=== PATIENT | female | born 1955 | race Caucasian/White ===

== ENCOUNTER 2017-05-26 12:43 | Emergency (ER) | payer MEDICARE ==
[~2017-05-26] VITALS: Ht 177.8 cm; Wt 57.3 kg
[2017-05-26] MEDS ORDERED: ARIP5TA PO (13:14)
[2017-05-26] MEDS ORDERED: ALPRAZolam 0.25 MG TAB PO ONE (13:15)
[2017-05-26] MEDS ORDERED: ONDANSETRON 4 MG ORAL DISINTEGRATING TAB (S0181) PO ONE (13:15)
[2017-05-26 13:49] LABS: BASO % 0.3 % (0.0-1.0); EOS # 0.1 K/mm3 (0.0-0.50); EOS % 0.8 % (0.0-3.0); LARGE UNSTAINED CELL # 0.1 K/mm3 (0.0-0.4); LARGE UNSTAINED CELL % 1.3 % (0.0-4.0); LYMPH # 1.6 K/mm3 (1.5-4.5); LYMPH % 19.1 % (24.0-44.0); MEAN CORPUSCULAR HEMOGLOBIN 29.4 pg (27.0-33.0); MEAN CORPUSCULAR VOLUME 86.5 fl (80.0-96.0); MONO # 0.4 K/mm3 (0.0-0.8); MONO % 4.5 % (0.0-5.0); NEUTROPHILS # 5.9 K/mm3 (1.8-7.7); PLATELET COUNT, AUTOMATED 346 k/mm3 (150-450); RED CELL DISTRIBUTION WIDTH 12.6 % (11.5-14.5)
[2017-05-26 14:00] LABS: ALBUMIN/GLOBULIN RATIO 0.93 (1.00-1.93); ALKALINE PHOSPHATASE 100 U/L (45-117); ALT/SGPT 37 U/L (12-78); ANION GAP 11 MEQ/L (8-16); AST/SGOT 23 U/L (15-37); BILIRUBIN,DIRECT 0.1 MG/DL (0.0-0.2); BILIRUBIN,TOTAL 0.6 MG/DL (0.2-1.0); BLOOD UREA NITROGEN 14 MG/DL (7-18); CALCIUM LEVEL 9.7 MG/DL (8.8-10.2); CARBON DIOXIDE LEVEL 24 MEQ/L (21-32); CHLORIDE LEVEL 104 MEQ/L (98-107); CREATININE FOR GFR 0.69 MG/DL (0.55-1.02); GLOMERULAR FILTRATION RATE > 60.0 (>45); GLUCOSE, FASTING 97 MG/DL (80-110); POTASSIUM SERUM 4.2 MEQ/L (3.5-5.1); SODIUM LEVEL 139 MEQ/L (136-145); TOTAL PROTEIN 8.3 GM/DL (6.4-8.2)
[2017-05-26] MEDS ORDERED: ZOFR4TAB3 PO (15:28)
[2017-05-26 15:44] VITALS: BP 119/71
== END 2017-05-26 15:46 | disposition home or self-care (01) ==
LOC: M ED 12:43
DX: R11.2 Nausea with vomiting, unspecified (principal); R10.9 Unspecified abdominal pain

== ENCOUNTER 2017-06-01 06:08 | Inpatient (IN) | payer MEDICARE, OTHER ==
[~2017-06-01] VITALS: Ht 175.3 cm; Wt 68.2 kg
[~2017-06-01 06:08] MED LIST: ARIP5TA PO; ZOFR4TAB3 PO
[2017-06-01] MEDS ORDERED: HYDR100C PO (06:58)
[2017-06-01 08:28] LABS: MEAN CORPUSCULAR HEMOGLOBIN 28.6 pg (27.0-33.0); MEAN CORPUSCULAR HGB CONC 32.2 g/dl (32.0-36.5); MEAN CORPUSCULAR VOLUME 88.6 fl (80.0-96.0); RED CELL DISTRIBUTION WIDTH 12.7 % (11.5-14.5); WHITE BLOOD COUNT 9.6 K/mm3 (4.0-10.0)
[2017-06-01 08:50] LABS: ALBUMIN 3.7 GM/DL (3.2-5.2); ALBUMIN/GLOBULIN RATIO 0.95 (1.00-1.93); ALKALINE PHOSPHATASE 90 U/L (45-117); ALT/SGPT 33 U/L (12-78); ANION GAP 8 MEQ/L (8-16); AST/SGOT 20 U/L (15-37); BILIRUBIN,DIRECT 0.1 MG/DL (0.0-0.2); BILIRUBIN,TOTAL 0.4 MG/DL (0.2-1.0); BLOOD UREA NITROGEN 12 MG/DL (7-18); CALCIUM LEVEL 9.3 MG/DL (8.8-10.2); CARBON DIOXIDE LEVEL 28 MEQ/L (21-32); CHLORIDE LEVEL 105 MEQ/L (98-107); CREATININE FOR GFR 0.76 MG/DL (0.55-1.02); GLOMERULAR FILTRATION RATE > 60.0 (>45); GLUCOSE, FASTING 103 MG/DL (80-110); POTASSIUM SERUM 4.3 MEQ/L (3.5-5.1); SODIUM LEVEL 141 MEQ/L (136-145); TOTAL PROTEIN 7.6 GM/DL (6.4-8.2)
[2017-06-01 09:39] LABS: METHADONE URINE NEGATIVE (NEGATIVE)
[2017-06-01] MEDS ORDERED: HYDR50CA2 PO (12:53)
[2017-06-01] MEDS ORDERED: VITA-121 PO (12:53)
[2017-06-01] MEDS ORDERED: ARIP1TAB PO (12:53)
[2017-06-01] MEDS ORDERED: ONDA4TAB6 PO (12:53)
[2017-06-01] MEDS ORDERED: MOM 30ML SUSPENSION UDC PO PRN (16:00)
[2017-06-01] MEDS ORDERED: traZODone 50 MG TAB PO PRN (16:00)
[2017-06-01] MEDS ORDERED: MAALOX 30 ML SUSP *UDC PO PRN (16:00)
[2017-06-01 16:25] VITALS: BP 113/65
[2017-06-01 18:16] VITALS: BP 134/79
[2017-06-01] MEDS: VITAMIN D 1,000 INTERNATIONAL UNITS TABLET PO SCH (18:18)
[2017-06-01] MEDS: ARIPiprazole 15 MG TAB (AbiLIFY) PO SCH (20:39)
[2017-06-01] MEDS: hydrOXYzine 50 MG TAB PO SCH (20:40)
[2017-06-02] MEDS ORDERED: OLANZapine ORAL DISINTEGRATING TAB 5MG PO ONE (01:45)
[2017-06-02 06:48] VITALS: BP 137/63
[2017-06-02] MEDS: VITAMIN D 1,000 INTERNATIONAL UNITS TABLET PO SCH (08:32)
[2017-06-02] MEDS ORDERED: OLANZapine ORAL DISINTEGRATING TAB 5MG PO PRN (11:05)
[2017-06-02] MEDS ORDERED: INFLUENZA QUADRIVALENT PF VACCINE 0.5ML SYRINGE (90686) IM ONE (13:00)
[2017-06-02] MEDS ORDERED: LORazepam 1 MG TAB PO STA (14:13)
[2017-06-02] MEDS ORDERED: diphenhydrAMINE 50 MG CAP PO STA (14:13)
[2017-06-02] MEDS ORDERED: HALOPERIDOL 5 MG TAB PO STA (14:13)
--- NOTE | 2017-06-02 17:23 | HPE ---
DATE OF ADMISSION: 06/01/2017 HISTORY OF PRESENT ILLNESS: This is a 61-year-old white woman who was admitted to the hospital in a very paranoid state, who was also acutely hallucinating. She has a history of schizophrenia and she currently attends [facility]. Apparently, they have been adjusting her medications lately. It seems like they started her on Abilify and they have quickly titrated up the dose to 15 mg a day. Despite this, the patient continues to be quite psychotic. She is paranoid that people are going into her house and going through her refrigerator because they want to poison her. She has been running and hiding because the voices tell her that they are going to hurt her and they are going to hurt her friends. The patient had gone to stay actually with a friend, but according to the friend, the patient stayed up all night and was also hiding in the house and this is where the friend decided to bring the patient to the emergency room. It seems that the patient's psychiatrist had also prescribed her some Klonopin but the patient was afraid that the Klonopin would kill her, and so she never started it. The patient is acutely psychotic today. When I went into the room, the patient was hiding in the bathroom. She told me that she needed to hide because the voices were saying that they were coming to kill her. She has been compliant with taking the Abilify 15 mg at bedtime which was being prescribed by her doctor. In addition, we have been giving her some Zyprexa Zydis 10 mg at least two doses already since admission last night and yet she remains very psychotic. As a result, the patient is not able to give me much history because her focus is that she needs to hide in the bathroom. At one point, later on, she started to yell and she is also not wanting to eat much food since admission. PAST PSYCHIATRIC HISTORY: Unable to obtain such history, but according to information obtained in the emergency room, the patient has never been hospitalized in our unit before. It seems that in early 2015, she was hospitalized in a psychiatric unit in another state when she was visiting her brother there. Unable to obtain much more past psychiatric history. FAMILY HISTORY: Unable to obtain information from this patient. SUBSTANCE ABUSE HISTORY: There does not appear to be any history of any substance abuse problems. ABUSE HISTORY: Unable to obtain information. PAST MEDICAL HISTORY: No acute medical problems that have been reported at this point. REVIEW OF SYSTEMS: VITAL SIGNS: Blood pressure 137/63, pulse 88, respiratory rate 18. APPEARANCE: The patient is dressed in hospital garments. She appears her stated age. MUSCULOSKELETAL SYSTEM: The patient's gait is normal. I did not elicit any involuntary movements. All other systems were reviewed and found to be negative. MENTAL STATUS EXAMINATION: The patient was alert and oriented times three. As I stated, mostly she was hiding in the bathroom. It was very difficult to get her to further cooperate with the mental status examination. She is experiencing auditory hallucinations and paranoid delusions. She is very fearful. She is not suicidal or homicidal. Her insight and judgment are poor. DIAGNOSIS: Schizophrenia. TREATMENT PLAN: At this point, the patient is acutely psychotic. We will monitor her for her psychotic symptoms. I am going to continue the Abilify 50 mg at bedtime. She is also on trazodone 50 mg at bedtime as needed for insomnia and she is on Atarax 50 mg. We have been giving her Zyprexa on an as-needed basis for her ongoing psychotic symptoms and we will titrate her medications as indicated. GUERA
[2017-06-02 18:16] VITALS: BP 119/60
[2017-06-02] MEDS: ARIPiprazole 15 MG TAB (AbiLIFY) PO SCH (20:12)
[2017-06-02] MEDS: hydrOXYzine 50 MG TAB PO SCH (20:12)
[2017-06-03 06:50] VITALS: BP 125/58
[2017-06-03] MEDS: VITAMIN D 1,000 INTERNATIONAL UNITS TABLET PO SCH (08:54)
[2017-06-03] MEDS: BETAMETHASONE VAL 0.1% CR 15 GM TOP SCH ×2 (08:55→20:08)
--- NOTE | 2017-06-03 12:44 | HPE ---
DATE OF ADMISSION: 06/01/2017 HISTORY OF PRESENT ILLNESS: Please refer to psychiatric history and evaluation for further details on this admission. This examination and history is intended for medical issues, which may need treatment, followup or consult on this 61-year-old female. ALLERGIES: 1. CODEINE. 2. MENTHOL. 3. MEPERIDINE. 4. OSELTAMIVIR. PRIMARY CARE PROVIDER: Dr. Escalona in [place]. She needs to get a local primary care provider. She currently does not have one. SOCIAL HISTORY: She is . She lives in an apartment. She is extremely paranoid. She is hearing voices and the voices have been telling her they were coming to kill her. Ethyl alcohol (EtOH) none. Smoking and recreational drug use, none. PAST MEDICAL HISTORY: 1. Vitamin D deficiency. 2. Schizophrenia. 3. Degenerative disc disease. She walks with a cane. PAST SURGICAL HISTORY: 1. Mass removed from left kidney, negative for cancer. 2. Bone biopsy left shoulder and left hip, negative for cancer. HOME MEDICATIONS: - Abilify 15 mg by mouth daily - vitamin D 1000 units daily - hydroxyzine pamoate 50 mg by mouth at bedtime as needed - Zofran 4 mg by mouth every four hours as needed for nausea and vomiting LABORATORY DATA: CBC was normal. CMP was normal. Toxicology screen was negative. FAMILY HISTORY: Noncontributory. REVIEW OF SYSTEMS: 10-system review was done. The patient had no complaints. States she has an eczematous patch on her left lower leg that she put cream on when it flares up. Other than that, she had no complaints. OBJECTIVE: A 61-year-old cooperative female in no acute distress. VITAL SIGNS: Blood pressure 119/60, pulse 90, respirations 16, temperature 97.6. GENERAL: The patient is alert and oriented times three, remains quite paranoid. HEENT: Pupils equal and react to light. Extraocular movement intact. Sclerae clear. Conjunctivae normal. No facial asymmetry. Pharynx, tongue, gums pink and moist. Tongue is midline. NECK: Supple without lymphadenopathy. No thyromegaly. No goiter. Carotids 2+ without bruits. CHEST: Clear to auscultation without wheeze or retraction. HEART: Regular. ABDOMEN: Benign. Bowel sounds are positive. GENITOURINARY/RECTAL: Not done. EXTREMITIES: Show arthritic changes. No cyanosis, clubbing or edema. Peripheral pulses equal and palpable bilaterally. SKIN: Warm and dry. IMPRESSION AND PLAN: Psychiatric plan per psychiatry. 1. History of vitamin D deficiency. Continue supplement. 2. Schizophrenia. 3. Degenerative disc disease, ambulates with a cane. 4. Left lower leg noted with a slightly dry eczema patch. No redness, swelling or drainage. We will do betamethasone cream twice a day for seven days. No other acute medical issues.
[2017-06-03] MEDS: OLANZapine ORAL DISINTEGRATING TAB 5MG PO PRN ×2 (15:49→20:08)
--- NOTE | 2017-06-03 17:43 | MHIPNPDOC ---
[facility] Progress Note Progress Note DATE OF SERVICE: 06/03/17 HISTORY: Patient was seen and evaluated. She was found sitting in the chair trying to read some papers. She reported that when she came in she was feeling very paranoid and also was hearing voices telling her that they're coming to kill her. She reports that during the weekend. She was hiding herself in various places including some other patient's room, she reports that she is feeling little better but continued to have close paranoid ideations and auditory hallucinations intermittently. She was able to hold and was stationed in reported that all psychotic symptoms started about 2 years ago for which she was having outpatient treatment, but soon she stopped her medications and had to be admitted to inpatient hospital about one and half years ago for about a week and since then she has been compliant with her medications recently. She had relapsed on her symptoms and her outpatient psychiatrist was trying to titrate some medications, but she was deteriorating fast. She reports that she usually lives alone and able to take care of herself including ADLs, going for grocery and taking care of finances without needing any help, but because of relapse. She had to start living with one of her friend, [employer] work there also , she continued to feel paranoid and was not sleeping at night, leading to her friend bringing her to ER for admission. She denies any recent memory problems and reports that without psychosis, She was able to take care of herself. She denies any suicidal or homicidal ideations, intentions or plans or previous attempts. She reports that to psychotic symptoms can happen anytime during today and during that time, she likes to be hiding somewhere being away from everyone else. Her sleep continued to be affected and reports that she did not sleep yesterday night because she continued to feel paranoid that the voices will kill her. She reports that there are multiple voices talking directly to her and all of them are outside her head just like hearing somebody talking to her, she reports the voices tell her their names, but she does not know any of them. She reports that because of the paranoia. Her appetite is also down and she avoids eating VITAL SIGNS: See below. CURRENT MEDICATIONS: See below. MENTAL STATUS EXAMINATION: 61yo female sitting in the chair, looks appropriate for the stated age, fair hygiene and grooming, decreased psychomotor activities, no abnormal movements, superficially cooperative with fair eye contact, speech is normal in rate, rhythm, amount, mood is 'scared, nervous', affect constricted and mood congruent , thought process is logical and goal directed, denies suicidal and homicidal ideations, reported auditory hallucinations, paranoid delusions elicited, aaox3 , fair immediate, short term and pen[facility]ent[facility] memory, fair insight, judgement and impulse control DIAGNOSES: 1. Psychosis, unspecified, rule out late onset schizophrenia. 2.. Rule out psychosis with dementia. 3. Rule out psychosis secondary to generalized medical condition. ASSESSMENT:. Patient seems to continue to be psychotic and paranoid, but not hiding and most of the symptoms of becoming intermittent. Her sleep and appetite are affected MANAGEMENT PLAN:. Continue to titrate medications. TIME SPENT: 25 minutes. Vital Signs Vital Signs Date Time Temp Pulse Resp B/P (MAP) Pulse Ox O2 Delivery O2 Flow Rate FiO2 06/03/17 06:50 98.6 94 18 125/58 (80) Room Air 06/01/17 16:25 95 Current Medications Current Medications Acetaminophen (Tylenol Tab) 650 mg Q6HP PRN PO HEADACHE or DISCOMFORT; Start at 16:00; Stop 07/01/17 at 15:59 Al Hydrox/Mg Hydrox/Simethicone (Mylanta) 30 ml Q4HP PRN PO HEARTBURN/ INDIGESTION; Start 06/01/17 at 16:00; Stop 07/01/17 at 15:59 Aripiprazole (AbiLIFY) 15 mg QHS PO Last administered on 06/02/17 20:12; Start 06/01/17 at 21:00; Stop 06/03/17 at 17:21; Status DC Aripiprazole (AbiLIFY) 20 mg QHS PO ; Start 06/03/17 at 21:00; Stop 07/03/17 at 20:59; Status UNV Betamethasone Valerate (Valisone) to excema patch left lower ... BID TOP Last administered on 06/03/17 08:55; Start 06/03/17 at 09:00; Stop 06/09/17 at 21:01 Diphenhydramine HCl (Benadryl) 50 mg STAT STAT PO ; Start 06/02/17 at 14:13; Stop 06/02/17 at 14:15; Status DC Haloperidol (Haldol) 5 mg STAT STAT PO Last administered on 06/02/17 14:18; Start 06/02/17 at 14:13; Stop 06/02/17 at 14:15; Status DC Home Med (Med Rec Complete!) ASDIRECTED XX ; Start 06/01/17 at 13:00; Stop at 13:00; Status DC Hydroxyzine HCl (Atarax) 50 mg QHS PO Last administered on 06/02/17 20:12; Start 06/01/17 at 21:00; Stop 07/01/17 at 20:59 Influenza Virus Vaccine (Fluzone Quadrivalent Pf Vaccine) 0.5 ml ASDIRECTED IM ; Start 06/03/17 at 19:00; Stop 06/03/17 at 19:00; Status DC Lorazepam (Ativan) 1 mg STAT STAT PO ; Start 06/02/17 at 14:13; Stop 06/02/17 at 14:15; Status DC Magnesium Hydroxide (Milk Of Magnesia) 30 ml DAILYPRN PRN PO CONSTIPATION; Start 06/01/17 at 16:00; Stop 07/01/17 at 15:59 Olanzapine (ZyPREXA ZYDIS) 10 mg Q4HP PRN PO ANXIETY/AGITATION Last administered on 06/02/17 11:07; Start 06/02/17 at 11:05; Stop 06/02/17 at 23:55 ; Status DC Olanzapine (ZyPREXA ZYDIS) 10 mg Q4HP PRN PO ANXIETY/AGITATION Last administered on 06/03/17 15:49; Start 06/03/17 at 00:00; Stop 07/03/17 at 00: 00 Trazodone HCl (Desyrel) 50 mg QHSP PRN PO INSOMNIA; Start 06/01/17 at 16:00; Stop 06/03/17 at 17:20; Status DC Trazodone HCl (Desyrel) 100 mg QHSP PRN PO INSOMNIA; Start 06/03/17 at 17:30; Stop 07/03/17 at 17:29; Status UNV Vitamin D (Vitamin D) 1,000 units DAILY PO Last administered on 06/03/17 08:54 ; Start 06/01/17 at 09:00; Stop 07/01/17 at 08:59 Allergies Coded Allergies: Menthol (Verified Allergy, Severe, ANAPHYLAXIS, 05/26/17) Meperidine (Verified Allergy, Severe, ANAPHYLAXIS, 05/26/17) Oseltamivir (Verified Allergy, Severe, ANAPHYLAXIS, 05/26/17) Codeine (Verified Allergy, Unknown, ANAPHYLAXIS, 05/26/17) EROS FIELD MD Jun 03, 2017 17:43
[2017-06-03 18:00] VITALS: BP 111/56
[2017-06-03] MEDS ORDERED: INFLUENZA QUADRIVALENT PF VACCINE 0.5ML SYRINGE (90686) IM SCH (19:00)
[2017-06-03] MEDS: ARIPiprazole 10 MG TAB PO SCH (20:08)
[2017-06-03] MEDS: hydrOXYzine 50 MG TAB PO SCH (20:08)
[2017-06-04 06:52] VITALS: BP_SYST 116; BP_SYST 147; BP_DIAS 57; BP_DIAS 73
[2017-06-04] MEDS: VITAMIN D 1,000 INTERNATIONAL UNITS TABLET PO SCH (08:48)
[2017-06-04] MEDS: BETAMETHASONE VAL 0.1% CR 15 GM TOP SCH ×2 (08:48→20:35)
--- NOTE | 2017-06-04 15:59 | MHIPNPDOC ---
[facility] Progress Note Progress Note DATE OF SERVICE: 06/04/17 HISTORY: Patient was seen and evaluated. She was found sitting in the common area, trying to color on paper. She reported that she was hearing voices this morning, and that's why she went to a common area to distract herself with colors and it was helping her but she is also worried that because of the voices telling her to do different things she might get upset. She reported that when she came in she was feeling very paranoid and also was hearing voices telling her that they're coming to kill her. She reported that after long time. She was able to sleep yesterday night with medications, which were titrated up for all lived for about 4 hours and she woke up again with thoughts of paranoia. She reports that she usually lives alone and able to take care of herself including ADLs, going for grocery and taking care of finances without needing any help, but because of relapse. She had to start living with one of her friend , but she continued to feel paranoid and was not sleeping at night, leading to her friend bringing her to ER for admission. She denies any recent memory problems and reports that without psychosis, She was able to take care of herself. She denies any suicidal or homicidal ideations, intentions or plans or previous attempts. VITAL SIGNS: See below. CURRENT MEDICATIONS: See below. MENTAL STATUS EXAMINATION: 61yo female sitting in the chair, looks appropriate for the stated age, fair hygiene and grooming, decreased psychomotor activities, no abnormal movements, superficially cooperative with fair eye contact, speech is normal in rate, rhythm, amount, mood is 'scared, nervous', affect constricted and mood congruent , thought process is logical and goal directed, denies suicidal and homicidal ideations, reported auditory hallucinations, paranoid delusions elicited, aaox3 , fair immediate, short term and exterminator memory, fair insight, judgement and impulse control DIAGNOSES: 1. Psychosis, unspecified, rule out late onset schizophrenia. 2.. Rule out psychosis with dementia. 3. Rule out psychosis secondary to generalized medical condition. ASSESSMENT:. Patient seems to continue to be psychotic and paranoid, but not hiding and most of the symptoms of becoming intermittent. Her sleep and appetite are affected MANAGEMENT PLAN:. Continue to titrate medications. TIME SPENT: 15 minutes. Vital Signs Vital Signs Date Time Temp Pulse Resp B/P (MAP) Pulse Ox O2 Delivery O2 Flow Rate FiO2 06/04/17 09:04 Room Air 06/04/17 06:52 97.4 100 18 116/57 (76) 06/01/17 16:25 95 Current Medications Current Medications Acetaminophen (Tylenol Tab) 650 mg Q6HP PRN PO HEADACHE or DISCOMFORT; Start at 16:00; Stop 07/01/17 at 15:59 Al Hydrox/Mg Hydrox/Simethicone (Mylanta) 30 ml Q4HP PRN PO HEARTBURN/ INDIGESTION; Start 06/01/17 at 16:00; Stop 07/01/17 at 15:59 Aripiprazole (AbiLIFY) 15 mg QHS PO Last administered on 06/02/17 20:12; Start 06/01/17 at 21:00; Stop 06/03/17 at 17:21; Status DC Aripiprazole (AbiLIFY) 20 mg QHS PO Last administered on 06/03/17 20:08; Start 06/03/17 at 21:00; Stop 07/03/17 at 20:59 Betamethasone Valerate (Valisone) to excema patch left lower ... BID TOP Last administered on 06/04/17 08:48; Start 06/03/17 at 09:00; Stop 06/09/17 at 21:01 Diphenhydramine HCl (Benadryl) 50 mg STAT STAT PO ; Start 06/02/17 at 14:13; Stop 06/02/17 at 14:15; Status DC Haloperidol (Haldol) 5 mg STAT STAT PO Last administered on 06/02/17 14:18; Start 06/02/17 at 14:13; Stop 06/02/17 at 14:15; Status DC Home Med (Med Rec Complete!) ASDIRECTED XX ; Start 06/01/17 at 13:00; Stop at 13:00; Status DC Hydroxyzine HCl (Atarax) 50 mg QHS PO Last administered on 06/03/17 20:08; Start 06/01/17 at 21:00; Stop 07/01/17 at 20:59 Influenza Virus Vaccine (Fluzone Quadrivalent Pf Vaccine) 0.5 ml ASDIRECTED IM ; Start 06/03/17 at 19:00; Stop 06/03/17 at 19:00; Status DC Lorazepam (Ativan) 1 mg STAT STAT PO ; Start 06/02/17 at 14:13; Stop 06/02/17 at 14:15; Status DC Magnesium Hydroxide (Milk Of Magnesia) 30 ml DAILYPRN PRN PO CONSTIPATION; Start 06/01/17 at 16:00; Stop 07/01/17 at 15:59 Olanzapine (ZyPREXA ZYDIS) 10 mg Q4HP PRN PO ANXIETY/AGITATION Last administered on 06/02/17 11:07; Start 06/02/17 at 11:05; Stop 06/02/17 at 23:55 ; Status DC Olanzapine (ZyPREXA ZYDIS) 10 mg Q4HP PRN PO ANXIETY/AGITATION Last administered on 06/03/17 20:08; Start 06/03/17 at 00:00; Stop 07/03/17 at 00: 00 Trazodone HCl (Desyrel) 50 mg QHSP PRN PO INSOMNIA; Start 06/01/17 at 16:00; Stop 06/03/17 at 17:20; Status DC Trazodone HCl (Desyrel) 100 mg QHSP PRN PO INSOMNIA; Start 06/03/17 at 17:30; Stop 07/03/17 at 17:29 Vitamin D (Vitamin D) 1,000 units DAILY PO Last administered on 06/04/17 08:48 ; Start 06/01/17 at 09:00; Stop 07/01/17 at 08:59 Allergies Coded Allergies: Menthol (Verified Allergy, Severe, ANAPHYLAXIS, 05/26/17) Meperidine (Verified Allergy, Severe, ANAPHYLAXIS, 05/26/17) Oseltamivir (Verified Allergy, Severe, ANAPHYLAXIS, 05/26/17) Codeine (Verified Allergy, Unknown, ANAPHYLAXIS, 05/26/17) EROS FIELD MD Jun 04, 2017 15:59
[2017-06-04 18:00] VITALS: BP 116/74
[2017-06-04] MEDS: ARIPiprazole 10 MG TAB PO SCH (20:34)
[2017-06-04] MEDS: hydrOXYzine 50 MG TAB PO SCH (20:34)
[2017-06-05] MEDS: traZODone 100 MG TAB PO PRN (00:37)
[2017-06-05] MEDS: OLANZapine ORAL DISINTEGRATING TAB 5MG PO PRN ×2 (00:37→08:31)
[2017-06-05 06:46] VITALS: BP 121/69
[2017-06-05] MEDS: VITAMIN D 1,000 INTERNATIONAL UNITS TABLET PO SCH (08:30)
[2017-06-05] MEDS: BETAMETHASONE VAL 0.1% CR 15 GM TOP SCH ×2 (08:32→20:43)
--- NOTE | 2017-06-05 17:11 | MHIPNPDOC ---
[facility] Progress Note Progress Note DATE OF SERVICE: 06/05/17 HISTORY: Patient was seen and evaluated. She was found sitting in her room alone. She reported that she was hearing voices this morning as well as yesterday night and reports that she was feeling very paranoid, which made her not sleep throughout the night. She reports that she has been compliant with medications and denies any side effects but still the says aren't going away. She reports that when she was on Zyprexa towards the voices were much better controlled , but she was having some side effects including weight gain, swelling of the legs and some stomach upset. Discussed about various treatment options and she reported that she would like to optimize the dose of Abilify before stopping it and changing over to Zyprexa again. She reports she would rather be with either of these medications because she knows what to expect from them. Her gait is not stable and she reports that she used to use cane for walking, but she does not feel safe with cane while she is here because of the voices telling various things. She denies any recent memory problems and reports that without psychosis, She was able to take care of herself. She denies any suicidal or homicidal ideations, intentions or plans or previous attempts. VITAL SIGNS: See below. CURRENT MEDICATIONS: See below. MENTAL STATUS EXAMINATION: 61yo female sitting in the chair, looks appropriate for the stated age, fair hygiene and grooming, decreased psychomotor activities, no abnormal movements, superficially cooperative with fair eye contact, speech is normal in rate, rhythm, amount, mood is 'scared, nervous', affect constricted and mood congruent , thought process is logical and goal directed, denies suicidal and homicidal ideations, reported auditory hallucinations, paranoid delusions elicited, aaox3 , fair immediate, short term and [facility] memory, fair insight, judgement and impulse control DIAGNOSES: 1. Psychosis, unspecified, rule out late onset schizophrenia. 2.. Rule out psychosis with dementia. 3. Rule out psychosis secondary to generalized medical condition. ASSESSMENT:. Patient seems to continue to be psychotic and paranoid, but not hiding and most of the symptoms of becoming intermittent. Her sleep and appetite are affected MANAGEMENT PLAN:. Continue to titrate medications. TIME SPENT: 15 minutes. Vital Signs Vital Signs Date Time Temp Pulse Resp B/P (MAP) Pulse Ox O2 Delivery O2 Flow Rate FiO2 9/13/17 06:46 98.8 104 18 121/69 (86) Room Air 06/01/17 16:25 95 Current Medications Current Medications Acetaminophen (Tylenol Tab) 650 mg Q6HP PRN PO HEADACHE or DISCOMFORT; Start at 16:00; Stop 07/01/17 at 15:59 Al Hydrox/Mg Hydrox/Simethicone (Mylanta) 30 ml Q4HP PRN PO HEARTBURN/ INDIGESTION; Start 06/01/17 at 16:00; Stop 07/01/17 at 15:59 Aripiprazole (AbiLIFY) 15 mg QHS PO Last administered on 06/02/17 20:12; Start 06/01/17 at 21:00; Stop 06/03/17 at 17:21; Status DC Aripiprazole (AbiLIFY) 20 mg QHS PO Last administered on 06/04/17 20:34; Start 06/03/17 at 21:00; Stop 07/03/17 at 20:59 Betamethasone Valerate (Valisone) to excema patch left lower ... BID TOP Last administered on 06/05/17 08:32; Start 06/03/17 at 09:00; Stop 06/09/17 at 21:01 Diphenhydramine HCl (Benadryl) 50 mg STAT STAT PO ; Start 06/02/17 at 14:13; Stop 06/02/17 at 14:15; Status DC Haloperidol (Haldol) 5 mg STAT STAT PO Last administered on 06/02/17 14:18; Start 06/02/17 at 14:13; Stop 06/02/17 at 14:15; Status DC Home Med (Med Rec Complete!) ASDIRECTED XX ; Start 06/01/17 at 13:00; Stop at 13:00; Status DC Hydroxyzine HCl (Atarax) 50 mg QHS PO Last administered on 06/04/17 20:34; Start 06/01/17 at 21:00; Stop 07/01/17 at 20:59 Influenza Virus Vaccine (Fluzone Quadrivalent Pf Vaccine) 0.5 ml ASDIRECTED IM ; Start 06/03/17 at 19:00; Stop 06/03/17 at 19:00; Status DC Lorazepam (Ativan) 1 mg STAT STAT PO ; Start 06/02/17 at 14:13; Stop 06/02/17 at 14:15; Status DC Magnesium Hydroxide (Milk Of Magnesia) 30 ml DAILYPRN PRN PO CONSTIPATION; Start 06/01/17 at 16:00; Stop 07/01/17 at 15:59 Olanzapine (ZyPREXA ZYDIS) 10 mg Q4HP PRN PO ANXIETY/AGITATION Last administered on 06/02/17 11:07; Start 06/02/17 at 11:05; Stop 06/02/17 at 23:55 ; Status DC Olanzapine (ZyPREXA ZYDIS) 10 mg Q4HP PRN PO ANXIETY/AGITATION Last administered on 06/05/17 08:31; Start 06/03/17 at 00:00; Stop 07/03/17 at 00: 00 Trazodone HCl (Desyrel) 50 mg QHSP PRN PO INSOMNIA; Start 06/01/17 at 16:00; Stop 06/03/17 at 17:20; Status DC Trazodone HCl (Desyrel) 100 mg QHSP PRN PO INSOMNIA Last administered on 00:37; Start 06/03/17 at 17:30; Stop 07/03/17 at 17:29 Vitamin D (Vitamin D) 1,000 units DAILY PO Last administered on 06/05/17 08:30 ; Start 06/01/17 at 09:00; Stop 07/01/17 at 08:59 Allergies Coded Allergies: Menthol (Verified Allergy, Severe, ANAPHYLAXIS, 05/26/17) Meperidine (Verified Allergy, Severe, ANAPHYLAXIS, 05/26/17) Oseltamivir (Verified Allergy, Severe, ANAPHYLAXIS, 05/26/17) Codeine (Verified Allergy, Unknown, ANAPHYLAXIS, 05/26/17) EROS FIELD MD Jun 05, 2017 17:10
[2017-06-05 18:00] VITALS: BP 115/68
[2017-06-05] MEDS: ARIPiprazole 10 MG TAB PO SCH (20:43)
[2017-06-05] MEDS ORDERED: hydrOXYzine 50 MG TAB PO SCH (21:00)
[2017-06-06 06:29] VITALS: BP 111/62
[2017-06-06] MEDS: BETAMETHASONE VAL 0.1% CR 15 GM TOP SCH ×2 (08:31→21:01)
[2017-06-06] MEDS: VITAMIN D 1,000 INTERNATIONAL UNITS TABLET PO SCH (08:32)
[2017-06-06] MEDS: OLANZapine ORAL DISINTEGRATING TAB 5MG PO PRN (11:33)
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
[2017-06-06 18:00] VITALS: BP 113/68
[2017-06-06] MEDS: ARIPiprazole 10 MG TAB PO SCH (21:00)
[2017-06-07 06:45] VITALS: BP 126/72
[2017-06-07] MEDS: VITAMIN D 1,000 INTERNATIONAL UNITS TABLET PO SCH (08:16)
[2017-06-07] MEDS: BETAMETHASONE VAL 0.1% CR 15 GM TOP SCH ×2 (08:16→21:02)
[2017-06-07] MEDS ORDERED: **PENDING PPD ENTRY XX SCH (09:00)
[2017-06-07] MEDS ORDERED: TUBERCULIN PPD 5 UNITS/0.1 ML ID ONE (15:00)
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
[2017-06-07 18:00] VITALS: BP 112/73
[2017-06-07] MEDS: traZODone 100 MG TAB PO PRN (21:02)
[2017-06-07] MEDS: ARIPiprazole 10 MG TAB PO SCH (21:02)
[2017-06-08 06:59] VITALS: BP 114/58
[2017-06-08] MEDS: VITAMIN D 1,000 INTERNATIONAL UNITS TABLET PO SCH (08:03)
[2017-06-08] MEDS: BETAMETHASONE VAL 0.1% CR 15 GM TOP SCH ×2 (08:04→20:58)
[2017-06-08] MEDS ORDERED: TUBERCULIN PPD 5 UNITS/0.1 ML ID ONE (10:00)
[2017-06-08 18:00] VITALS: BP 101/68
[2017-06-08] MEDS: ARIPiprazole 10 MG TAB PO SCH (20:57)
[2017-06-08] MEDS: traZODone 100 MG TAB PO PRN (20:57)
[2017-06-09 07:00] VITALS: BP 110/58
[2017-06-09] MEDS: VITAMIN D 1,000 INTERNATIONAL UNITS TABLET PO SCH (08:14)
[2017-06-09] MEDS: BETAMETHASONE VAL 0.1% CR 15 GM TOP SCH ×2 (08:14→20:59)
[2017-06-09] MEDS ORDERED: PPD DOCUMENTATION ENTRY MISC XX SCH (10:00)
[2017-06-09] MEDS ORDERED: PPD DOCUMENTATION ENTRY MISC XX ONE (15:00)
[2017-06-09 18:00] VITALS: BP 101/57
[2017-06-09] MEDS: traZODone 100 MG TAB PO PRN (20:59)
[2017-06-09] MEDS: ARIPiprazole 10 MG TAB PO SCH (20:59)
[2017-06-10 06:40] VITALS: BP 127/59
[2017-06-10] MEDS: VITAMIN D 1,000 INTERNATIONAL UNITS TABLET PO SCH (08:22)
--- NOTE | 2017-06-10 13:26 | MHIPN ---
DATE: 06/10/2017 I met with staff and with patient on Ms. Fournier. I performed a mini mental status and found the patient to have some cognitive decline regarding immediate and recent memory. She stated she was presently on Abilify 30 mg as being titrated by her previous physician here, and apparently the order for 30 mg was on 06/07/2017. This is the patient's second admission. She states that previous when she was taking olanzapine that it caused her to have side effects of bloating and foot swelling. She is presently stating that she is having swelling of her feet and bloating with her present medication, though it has not been seen on examination. She states her symptoms of psychosis began in October of 2 years ago and that both the olanzapine and Abilify were effective at that time, but she states in the last 2-1/2 weeks she has begun hearing voices. She is presently admitting to auditory hallucinations of a paranoid nature. MENTAL STATUS EXAMINATION: Her speech is normal. No obvious disturbance of thought process. She has no loose associations. She is having paranoid thoughts of people stating is being chased and patient states she has "no place to hide.". Judgment and insight are fair. She is fully oriented. There is some disturbance of recent and immediate memory noted. Attention and concentration seem within normal, and mood euthymic. Affect is neutral. DIAGNOSIS: Schizophrenia. PLAN: As her Abilify has been raised only recently, I will continue on it and evaluate its effectiveness prior to any further change in medication.
[2017-06-10 18:00] VITALS: BP 102/58
[2017-06-10] MEDS: traZODone 100 MG TAB PO PRN (20:26)
[2017-06-10] MEDS: ARIPiprazole 10 MG TAB PO SCH (20:26)
[2017-06-11 06:27] VITALS: BP 121/66
[2017-06-11] MEDS: VITAMIN D 1,000 INTERNATIONAL UNITS TABLET PO SCH (08:43)
--- NOTE | 2017-06-11 09:20 | MHIPN ---
DATE OF SERVICE: 06/11/2017 I met with Ms. Fournier today. She was not aware that her Abilify had been just recently increased. I maintained that dose prior to any concern about her choice of changing it. She complains of anxiety at night with hearing noises, being scared, and have poor sleep, but agrees that her condition is improved since admission. She states she is hearing one voice that is threatening her. I have discontinued her as needed olanzapine, which I do not think she was using anyway and increased her Atarax from a as needed dose to three time a day dose of 50 mg to see if it helps her with her anxiety. DIAGNOSIS: Schizophrenia. PLAN: As above and will observe.
[2017-06-11] MEDS: hydrOXYzine 50 MG TAB PO SCH ×3 (09:44→21:06)
[2017-06-11 18:00] VITALS: BP 102/82
[2017-06-11] MEDS: ARIPiprazole 10 MG TAB PO SCH (21:06)
[2017-06-12 06:49] VITALS: BP 124/61
[2017-06-12] MEDS: hydrOXYzine 50 MG TAB PO SCH ×3 (08:41→21:11)
[2017-06-12] MEDS: VITAMIN D 1,000 INTERNATIONAL UNITS TABLET PO SCH (08:41)
--- NOTE | 2017-06-12 15:28 | MHIPN ---
DATE: 06/12/2017 I met with Ms. Fournier today. She is still concerned about staying on Abilify and asks if, in fact, she should go back to her previous medication, which caused her side effects. I had increased her Atarax. Staff reported the patient slept better last night. I spoke with discharge planning staff, who states they are initiating long-term treatment planning to [facility]. Patient did not complain today of hearing voices of significance. Decision today is not to, again, change her medication and to continue observing her on Abilify at 30 mg with the increase in Atarax. MENTAL STATUS: Speech is normal. No disturbance of thought process. Complaining of auditory hallucination infrequent. Judgment and insight fair. Fully oriented. Patient's recent and remote memory are intact. No disturbance of attention and concentration. She has a full fund of knowledge, and her mood is good. Her affect is neutral. DIAGNOSES: Chronic schizophrenia.
[2017-06-12 18:31] VITALS: BP 98/56
[2017-06-12] MEDS: ARIPiprazole 10 MG TAB PO SCH (21:11)
[2017-06-13 06:59] VITALS: BP 120/64
[2017-06-13] MEDS: hydrOXYzine 50 MG TAB PO SCH ×4 (08:24→21:00)
[2017-06-13] MEDS: VITAMIN D 1,000 INTERNATIONAL UNITS TABLET PO SCH (08:24)
--- NOTE | 2017-06-13 10:33 | MHIPN ---
DATE: 06/13/2017 I met with Ms. Fournier today. She complains still of fear at night. She states the staff state she is sleeping well, but she states she does not know it. She still states she has some nervousness when thinking about the evening. I have increased her Atarax to four times a day. The decision to alter her antipsychotic again since Abilify replaced her previous antipsychotic is still not being considered. 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 MENTAL STATUS EXAMINATION: Speech is slightly stuttered. No disturbance of thought process. The patient complains of psychotic thoughts in the evening. Judgment and insight are good. The patient is fully oriented. No disturbance of recent or remote memory. No disturbance of attention or concentration. Language is normal. Full fund of knowledge. Mood is anxious. Affect is congruently anxious. DIAGNOSIS: Chronic schizophrenia.
[2017-06-13 18:00] VITALS: BP 116/64
[2017-06-13] MEDS: ARIPiprazole 10 MG TAB PO SCH (21:00)
[2017-06-13] MEDS: traZODone 100 MG TAB PO PRN (21:01)
[2017-06-14 06:00] VITALS: BP 132/61
[2017-06-14] MEDS: VITAMIN D 1,000 INTERNATIONAL UNITS TABLET PO SCH (08:36)
[2017-06-14] MEDS: hydrOXYzine 50 MG TAB PO SCH ×4 (08:36→21:03)
[2017-06-14] MEDS ORDERED: risperiDONE 2 MG TAB PO SCH (09:00)
--- NOTE | 2017-06-14 12:04 | MHIPN ---
DATE: 06/14/2017 Ms. Fournier complains of tiredness today. She stated she did not sleep well last night. She complains that she is still hearing voices. She states that she spoke with Dr. Cordova, who suggested that she might be requiring a medication change. I have been hesitant to simply stop her Abilify and go to another antipsychotic. I will start the patient on Risperdal 2 mg every day and consider if she gets an improvement of discontinuing her Abilify. 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 This would occur at [facility]. DIAGNOSIS: Schizophrenia, chronic. MENTAL STATUS: Speech is normal. Thought process normal. No loose associations. Psychotic thoughts are described by patient in the evening as voices that frightened her. Judgment and insight are good. She is fully oriented. Recent and remote memory intact. Attention and concentration intact. No disturbance of language. Full fund of knowledge. Mood is fair. Affect is neutral.
[2017-06-14 18:31] VITALS: BP 120/60
[2017-06-14] MEDS: risperiDONE 2 MG TAB PO SCH (21:03)
[2017-06-14] MEDS: ARIPiprazole 10 MG TAB PO SCH (21:03)
[2017-06-14] MEDS: traZODone 100 MG TAB PO PRN (21:03)
[2017-06-15 07:19] VITALS: BP 112/64
[2017-06-15] MEDS: hydrOXYzine 50 MG TAB PO SCH ×4 (08:11→20:57)
[2017-06-15] MEDS: VITAMIN D 1,000 INTERNATIONAL UNITS TABLET PO SCH (08:11)
--- NOTE | 2017-06-15 09:37 | IPN ---
DATE: 06/15/2017 I spoke with Bambi Fournier today. We had added a dose of Risperdal due to her concerns with Abilify was not effective. She states that her previous use of neuroleptics including Abilify and olanzapine initially helped her control the voices that were frightening her, but both of them lost effect. Due to the fact that she was on Abilify 30 mg, I was hesitant to completely discontinue the Abilify immediately, but did add a small dose of Risperdal. Today, she states that her hallucinations were slightly decreased; so we will continue on present treatment. DIAGNOSIS: 1. Chronic schizophrenia. MENTAL STATUS: No disturbance of speech. Positive admission of hallucinations. No disturbance of thought process or associations. Judgment and insight are good. Fully oriented. Recent and remote memory intact. Attention and concentration intact. No disturbance of language. Full fund of knowledge. Mood is fair. Affect is neutral.
[2017-06-15 18:24] VITALS: BP 122/63
[2017-06-15] MEDS: risperiDONE 2 MG TAB PO SCH (20:57)
[2017-06-15] MEDS: traZODone 100 MG TAB PO PRN (20:57)
[2017-06-15] MEDS: ARIPiprazole 10 MG TAB PO SCH (20:57)
[2017-06-16 06:27] VITALS: BP 111/61
[2017-06-16] MEDS: hydrOXYzine 50 MG TAB PO SCH ×4 (08:06→21:02)
[2017-06-16] MEDS: VITAMIN D 1,000 INTERNATIONAL UNITS TABLET PO SCH (08:06)
[2017-06-16 18:47] VITALS: BP 108/62
[2017-06-16] MEDS ORDERED: ARIPiprazole 10 MG TAB PO SCH (21:00)
[2017-06-16] MEDS: traZODone 100 MG TAB PO PRN (21:02)
[2017-06-16] MEDS: risperiDONE 2 MG TAB PO SCH (21:02)
[2017-06-17 06:41] VITALS: BP 123/74
[2017-06-17] MEDS: VITAMIN D 1,000 INTERNATIONAL UNITS TABLET PO SCH (07:57)
[2017-06-17] MEDS: hydrOXYzine 50 MG TAB PO SCH ×4 (07:57→21:06)
[2017-06-17] MEDS: ACETAMINOPHEN TAB 650MG DOSE (2X325MG) PO PRN (12:03)
--- NOTE | 2017-06-17 13:46 | IPN ---
DATE OF SERVICE: 06/17/2017 Ms. Fournier is feeling that the Risperdal which we have added is seeming to work better. She is sleeping better and not as bright. She does not want to go to long-term hospital treatment. She states her brother will be contacting us for possible alternative plan. Presently, she is on Risperdal 4 mg, and I have discontinued her Abilify. Speech is normal. No disturbance of thought process. No loose associations. The patient states she does hear voices at night that frighten her but that they are getting weaker. Judgment and insight are good. She is fully oriented. Recent and remote memory intact. No disturbance of attention and concentration. Full fund of knowledge. Mood is fair. Affect is neutral. DIAGNOSIS: Chronic schizophrenia. PLAN: Discussed discharge plan ideas with staff and with her family.
[2017-06-17 18:00] VITALS: BP 105/67
[2017-06-17] MEDS: traZODone 100 MG TAB PO PRN (21:06)
[2017-06-17] MEDS: risperiDONE 2 MG TAB PO SCH (21:06)
[2017-06-18 06:25] VITALS: BP 111/62
[2017-06-18] MEDS: hydrOXYzine 50 MG TAB PO SCH ×4 (08:22→20:58)
[2017-06-18] MEDS: VITAMIN D 1,000 INTERNATIONAL UNITS TABLET PO SCH (08:22)
--- NOTE | 2017-06-18 10:35 | IPN ---
DATE OF SERVICE: 06/18/2017 Ms. Fournier did not sleep last night. She is in bed this morning. She is unclear and vague whether the new antipsychotic is working as well but clearly she did not sleep well last night. I am making a mild increase of Risperdal to 5 mg and trazodone to 150 mg. It is my understanding that long-term care is being sought for this woman. I will discuss that with treatment team. Speech is normal. Thought processes normal. No loose associations. Complains of mild auditory hallucinations in the evening. Judgment and insight fair. Fully oriented. Recent and remote memory intact. No disturbance of attention or concentration. No disturbance of language. Full fund of knowledge. Mood is anxious. Affect is congruent. DIAGNOSIS: Chronic schizophrenia.
[2017-06-18 18:00] VITALS: BP 68/58
[2017-06-18] MEDS: risperiDONE 2 MG TAB PO SCH (20:58)
[2017-06-18] MEDS: traZODone 100 MG TAB PO PRN (20:58)
[2017-06-18] MEDS: ACETAMINOPHEN TAB 650MG DOSE (2X325MG) PO PRN (20:59)
[2017-06-19 07:09] VITALS: BP 137/60
[2017-06-19] MEDS: VITAMIN D 1,000 INTERNATIONAL UNITS TABLET PO SCH (08:30)
[2017-06-19] MEDS ORDERED: hydrOXYzine 50 MG TAB PO SCH (09:00)
[2017-06-19] MEDS: hydrOXYzine 25 MG TAB PO SCH ×3 (13:00→20:59)
--- NOTE | 2017-06-19 16:06 | MHIPN ---
DATE: 06/19/2017 Ms. Fournier states that she slept very well last night. She feels, however, perhaps she is a bit too groggy during the day. For this reason, I have decreased her Atarax to 25 mg rather than 50 mg. She states the voices are less and that she feels she is doing better. Paperwork has been arranged for long-term treatment but I will discuss other options with the team also this morning. MENTAL STATUS EXAMINATION: Speech is normal. No disturbance of thought processes. No loose associations. Psychotic thoughts: The patient states she still heard some voices last night. Judgment and insight are good. Orientation in three spheres. Recent and remote memory intact. Attention and concentration normal. Full fund of knowledge. Mood is good. Affect is pleasant. DIAGNOSIS: Chronic schizophrenia.
[2017-06-19 18:00] VITALS: BP 109/56
[2017-06-19] MEDS: traZODone 100 MG TAB PO PRN (20:59)
[2017-06-19] MEDS: risperiDONE 2 MG TAB PO SCH (20:59)
[2017-06-20 06:00] VITALS: BP 114/64
[2017-06-20] MEDS: VITAMIN D 1,000 INTERNATIONAL UNITS TABLET PO SCH (08:16)
[2017-06-20] MEDS: hydrOXYzine 25 MG TAB PO SCH ×4 (08:16→20:51)
[2017-06-20 18:00] VITALS: BP 119/64
[2017-06-20] MEDS: traZODone 100 MG TAB PO PRN (20:51)
[2017-06-20] MEDS: risperiDONE 2 MG TAB PO SCH (20:51)
[2017-06-20] MEDS: ACETAMINOPHEN TAB 650MG DOSE (2X325MG) PO PRN (20:53)
[2017-06-21 06:00] VITALS: BP 120/74
--- NOTE | 2017-06-21 08:44 | MHIPN ---
DATE: 06/21/2017 Ms. Fournier states that she slept well last night except her roommate woke her up. She states the voices are decreased. She states that she is still mildly anxious. She states that if possible she would like to go with her brother for a few weeks and then return to her apartment. I will discuss that with discharge planning. MENTAL STATUS EXAMINATION: Speech is normal. Thought processes normal. No loose associations. No complaints of psychotic thoughts. Judgment and insight are good. Orientation in three spheres. Recent and remote memory intact. Attention and concentration normal. No disturbance of language. Full fund of knowledge. Mood is good. Affect is bright. DIAGNOSIS: Chronic schizophrenia.
[2017-06-21] MEDS: hydrOXYzine 25 MG TAB PO SCH ×4 (09:26→21:13)
[2017-06-21] MEDS: VITAMIN D 1,000 INTERNATIONAL UNITS TABLET PO SCH (09:26)
--- NOTE | 2017-06-21 13:16 | MHIPN ---
DATE: 06/20/2017 Ms. Fournier states that she is less sedated today. She states the voices that she hears are a little less strong. She states she is sleeping well. She is out of bed and moving around the unit and is significantly less anxious. Will continue present medication at the present dose. MENTAL STATUS EXAMINATION: Speech is normal. No disturbance of thought processes. Presence of psychotic auditory hallucinations, but significantly weaker. No loose associations. Judgment and insight are good. Fully oriented. Recent and remote memory intact. Attention and concentration are normal. No disturbance of language. Full fund of knowledge. Mood is good. Affect is neutral to bright. IMPRESSION: Chronic schizophrenia. No changes in medication at this time.
[2017-06-21 18:00] VITALS: BP 124/58
[2017-06-21] MEDS: ACETAMINOPHEN TAB 650MG DOSE (2X325MG) PO PRN (21:13)
[2017-06-21] MEDS: risperiDONE 2 MG TAB PO SCH (21:13)
[2017-06-22 06:50] VITALS: BP 116/62
[2017-06-22] MEDS: hydrOXYzine 25 MG TAB PO SCH ×4 (08:17→20:54)
[2017-06-22] MEDS: VITAMIN D 1,000 INTERNATIONAL UNITS TABLET PO SCH (08:18)
[2017-06-22 18:00] VITALS: BP 107/62
[2017-06-22] MEDS: risperiDONE 2 MG TAB PO SCH (20:54)
[2017-06-22] MEDS: traZODone 100 MG TAB PO PRN (20:56)
[2017-06-23 06:00] VITALS: BP 108/58
[2017-06-23] MEDS: VITAMIN D 1,000 INTERNATIONAL UNITS TABLET PO SCH (08:29)
[2017-06-23] MEDS: hydrOXYzine 25 MG TAB PO SCH ×4 (08:30→21:01)
[2017-06-23] MEDS ORDERED: BISACODYL 5 MG TAB PO ONE (16:30)
[2017-06-23 18:00] VITALS: BP 127/72
[2017-06-23] MEDS: traZODone 100 MG TAB PO PRN (21:00)
[2017-06-23] MEDS: risperiDONE 2 MG TAB PO SCH (21:01)
[2017-06-24 06:39] VITALS: BP 104/60
[2017-06-24] MEDS: VITAMIN D 1,000 INTERNATIONAL UNITS TABLET PO SCH (08:33)
[2017-06-24] MEDS: hydrOXYzine 25 MG TAB PO SCH ×4 (08:33→21:03)
--- NOTE | 2017-06-24 16:15 | MHIPNPDOC ---
[facility] Progress Note Progress Note DATE OF SERVICE: 06/24/17 HISTORY: . Patient is a 61-year-old female that was admitted due to acute psychosis, having auditory hallucinations without commands, or any specific message. She currently denies having hallucinations, or any other symptoms of psychosis. She has been tolerating medications without any side effects and she continues to be ambivalent about returning home. However, she would like to continue living by herself, denied any symptoms of depression or any other mood symptoms, denies ideas to hurt herself VITAL SIGNS: See below. NEW TEST RESULTS: . CURRENT MEDICATIONS: See below. MENTAL STATUS EXAMINATION: Patient is a 61-year-old female , unkept ,older than stated age Speech: Is . Fluent and coherent Language skills are . Adequate Thought processes including: .circumstantial Thought content: No suicidal or homicidal ideas. No delusions elicited or hallucinations reported Description of abnormal or psychotic thoughts: . No active symptoms of psychosis Judgment: . Fair Insight: very limited, good, fair. poor. Fair Orientation: . Oriented 3 Recent and remote memory: . Intact Attention span and concentration: . Normal Language: . Fluent and coherent Fund of knowledge: . Adequate Mood: "better". Affect: Full range DIAGNOSES: 1. . Chronic schizophrenia 2. . 3. . ASSESSMENT: 61-year-old female admitted due to acute psychotic episode, really without psychosis. No side effects of medications tolerated well. Pending discharge plan MANAGEMENT PLAN: . Continue current medications. Discharge plan TIME SPENT: 25 minutes. Vital Signs Vital Signs Date Time Temp Pulse Resp B/P (MAP) Pulse Ox O2 Delivery O2 Flow Rate FiO2 06/24/17 06:39 98.1 84 16 104/60 (75) 06/20/17 12:12 Room Air Current Medications Current Medications Acetaminophen (Tylenol Tab) 650 mg Q6HP PRN PO HEADACHE or DISCOMFORT Last administered on 06/21/17 21:13; Start 06/01/17 at 16:00; Stop 07/01/17 at 15:59 Al Hydrox/Mg Hydrox/Simethicone (Mylanta) 30 ml Q4HP PRN PO HEARTBURN/ INDIGESTION; Start 06/01/17 at 16:00; Stop 07/01/17 at 15:59 Aripiprazole (AbiLIFY) 15 mg QHS PO Last administered on 06/02/17 20:12; Start 06/01/17 at 21:00; Stop 06/03/17 at 17:21; Status DC Aripiprazole (AbiLIFY) 20 mg QHS PO Last administered on 06/04/17 20:34; Start 06/03/17 at 21:00; Stop 06/05/17 at 17:14; Status DC Aripiprazole (AbiLIFY) 20 mg QHS PO Last administered on 06/16/17 21:02; Start 06/16/17 at 21:00; Stop 06/17/17 at 12:36; Status DC Aripiprazole (AbiLIFY) 25 mg QHS PO Last administered on 06/06/17 21:00; Start 06/05/17 at 21:00; Stop 06/07/17 at 13:26; Status DC Aripiprazole (AbiLIFY) 30 mg QHS PO Last administered on 06/15/17 20:57; Start 06/07/17 at 21:00; Stop 06/16/17 at 07:41; Status DC Betamethasone Valerate (Valisone) to excema patch left lower ... BID TOP Last administered on 06/09/17 20:59; Start 06/03/17 at 09:00; Stop 06/09/17 at 21:01 ; Status DC Diphenhydramine HCl (Benadryl) 50 mg STAT STAT PO ; Start 06/02/17 at 14:13; Stop 06/02/17 at 14:15; Status DC Haloperidol (Haldol) 5 mg STAT STAT PO Last administered on 06/02/17 14:18; Start 06/02/17 at 14:13; Stop 06/02/17 at 14:15; Status DC Home Med (Med Rec Complete!) ASDIRECTED XX ; Start 06/01/17 at 13:00; Stop at 13:00; Status DC Hydroxyzine HCl (Atarax) 25 mg QID PO Last administered on 06/19/17 08:30; Start 06/19/17 at 09:00; Stop 06/19/17 at 09:00; Status DC Hydroxyzine HCl (Atarax) 25 mg QID PO Last administered on 06/23/17 21:01; Start 06/19/17 at 13:00; Stop 07/19/17 at 12:59 Hydroxyzine HCl (Atarax) 50 mg Q6HP PO Last administered on 06/06/17 08:32; Start 06/05/17 at 21:00; Stop 06/11/17 at 09:09; Status DC Hydroxyzine HCl (Atarax) 50 mg QHS PO Last administered on 06/04/17 20:34; Start 06/01/17 at 21:00; Stop 06/05/17 at 17:14; Status DC Hydroxyzine HCl (Atarax) 50 mg QID PO Last administered on 06/18/17 20:58; Start 06/13/17 at 13:00; Stop 06/19/17 at 08:01; Status DC Hydroxyzine HCl (Atarax) 50 mg TID PO Last administered on 06/13/17 08:24; Start 06/11/17 at 09:00; Stop 06/13/17 at 10:13; Status DC Influenza Virus Vaccine (Fluzone Quadrivalent Pf Vaccine) 0.5 ml ASDIRECTED IM ; Start 06/03/17 at 19:00; Stop 06/03/17 at 19:00; Status DC Lorazepam (Ativan) 1 mg STAT STAT PO ; Start 06/02/17 at 14:13; Stop 06/02/17 at 14:15; Status DC Magnesium Hydroxide (Milk Of Magnesia) 30 ml DAILYPRN PRN PO CONSTIPATION Last administered on 06/22/17 16:32; Start 06/01/17 at 16:00; Stop 07/01/17 at 15:59 Miscellaneous (Unresolved Clarification Entry) SEE LABEL COMMENTS UNRESOLVED XX ; Start 06/14/17 at 00:01; Stop 06/15/17 at 07:46; Status DC Non-Formulary Medication ( See Comment Field Below ) SEE COMMENTS SECTION 1T @10 XX ; Start 06/09/17 at 10:00; Stop 06/10/17 at 09:59; Status UNV Non-Formulary Medication ( See Comment Field Below ) SEE LABEL COMMENTS DAILY XX ; Start 06/07/17 at 09:00; Stop 06/07/17 at 13:29; Status DC Olanzapine (ZyPREXA ZYDIS) 10 mg Q4HP PRN PO ANXIETY/AGITATION Last administered on 06/02/17 11:07; Start 06/02/17 at 11:05; Stop 06/02/17 at 23:55 ; Status DC Olanzapine (ZyPREXA ZYDIS) 10 mg Q4HP PRN PO ANXIETY/AGITATION Last administered on 06/06/17 11:33; Start 06/03/17 at 00:00; Stop 06/11/17 at 09:09 ; Status DC Risperidone (RisperDAL) 2 mg DAILY PO ; Start 06/14/17 at 09:00; Stop 06/14/17 at 12:34; Status DC Risperidone (RisperDAL) 2 mg QHS PO Last administered on 06/15/17 20:57; Start 06/14/17 at 21:00; Stop 06/16/17 at 07:41; Status DC Risperidone (RisperDAL) 4 mg QHS PO Last administered on 06/17/17 21:06; Start 06/16/17 at 21:00; Stop 06/18/17 at 10:10; Status DC Risperidone (RisperDAL) 5 mg QHS PO Last administered on 06/23/17 21:01; Start 06/18/17 at 21:00; Stop 07/18/17 at 20:59 Trazodone HCl (Desyrel) 50 mg QHSP PRN PO INSOMNIA; Start 06/01/17 at 16:00; Stop 06/03/17 at 17:20; Status DC Trazodone HCl (Desyrel) 100 mg QHSP PRN PO INSOMNIA Last administered on 21:06; Start 06/03/17 at 17:30; Stop 06/18/17 at 10:10; Status DC Trazodone HCl (Desyrel) 150 mg QHSP PRN PO INSOMNIA Last administered on 21:00; Start 06/18/17 at 10:15; Stop 07/18/17 at 10:14 Vitamin D (Vitamin D) 1,000 units DAILY PO Last administered on 06/24/17 08:33 ; Start 06/01/17 at 09:00; Stop 07/01/17 at 08:59 Allergies Coded Allergies: Menthol (Verified Allergy, Severe, ANAPHYLAXIS, 05/26/17) Meperidine (Verified Allergy, Severe, ANAPHYLAXIS, 05/26/17) Oseltamivir (Verified Allergy, Severe, ANAPHYLAXIS, 05/26/17) Codeine (Verified Allergy, Unknown, ANAPHYLAXIS, 05/26/17) YOLANDA MANNING MD Jun 24, 2017 16:15
[2017-06-24 18:16] VITALS: BP 111/69
[2017-06-24] MEDS: traZODone 100 MG TAB PO PRN (21:03)
[2017-06-24] MEDS: risperiDONE 2 MG TAB PO SCH (21:03)
[2017-06-25 06:39] VITALS: BP 114/66
[2017-06-25] MEDS: hydrOXYzine 25 MG TAB PO SCH ×4 (09:00→21:01)
[2017-06-25] MEDS: VITAMIN D 1,000 INTERNATIONAL UNITS TABLET PO SCH (09:34)
--- NOTE | 2017-06-25 14:10 | MHIPNPDOC ---
[facility] Progress Note Progress Note DATE OF SERVICE: 06/25/17 HISTORY: . Patient is a 61-year-old female that was admitted due to acute psychosis, having auditory hallucinations without commands, or any specific message. She currently denies having hallucinations, or any other symptoms of psychosis. She has been tolerating medications without any side effects and she will be staying with her brother until feels completely comfortable to return home. However, she would like to continue living by herself, denied any symptoms of depression or any other mood symptoms, denies ideas to hurt herself VITAL SIGNS: See below. NEW TEST RESULTS: . CURRENT MEDICATIONS: See below. MENTAL STATUS EXAMINATION: Patient is a 61-year-old female , unkept ,older than stated age Speech: Is . Fluent and coherent Language skills are . Adequate Thought processes including: .circumstantial Thought content: No suicidal or homicidal ideas. No delusions elicited or hallucinations reported Description of abnormal or psychotic thoughts: . No active symptoms of psychosis Judgment: . Fair Insight: very limited, good, fair. poor. Fair Orientation: . Oriented 3 Recent and remote memory: . Intact Attention span and concentration: . Normal Language: . Fluent and coherent Fund of knowledge: . Adequate Mood: "better". Affect: Full range DIAGNOSES: 1. . Chronic schizophrenia 2. . 3. . ASSESSMENT: Female with chronic schizophrenia admitted due to acute psychotic symptoms that consisted in auditory hallucinations currently is not reporting any symptoms of psychosis and is willing to continue treatment as outpatient MANAGEMENT PLAN: . Continue current medications. Discharge plan TIME SPENT: 25 minutes. Vital Signs Vital Signs Date Time Temp Pulse Resp B/P (MAP) Pulse Ox O2 Delivery O2 Flow Rate FiO2 06/25/17 06:39 97.7 91 16 114/66 (82) 06/20/17 12:12 Room Air Current Medications Current Medications Acetaminophen (Tylenol Tab) 650 mg Q6HP PRN PO HEADACHE or DISCOMFORT Last administered on 06/21/17t 21:13; Start 06/01/17 at 16:00; Stop 07/01/17 at 15:59 Al Hydrox/Mg Hydrox/Simethicone (Mylanta) 30 ml Q4HP PRN PO HEARTBURN/ INDIGESTION; Start 06/01/17 at 16:00; Stop 07/01/17 at 15:59 Aripiprazole (AbiLIFY) 15 mg QHS PO Last administered on 06/02/17 20:12; Start 06/01/17 at 21:00; Stop 06/03/17 at 17:21; Status DC Aripiprazole (AbiLIFY) 20 mg QHS PO Last administered on 06/04/17 20:34; Start 06/03/17 at 21:00; Stop 06/05/17 at 17:14; Status DC Aripiprazole (AbiLIFY) 20 mg QHS PO Last administered on 06/16/17 21:02; Start 06/16/17 at 21:00; Stop 06/17/17 at 12:36; Status DC Aripiprazole (AbiLIFY) 25 mg QHS PO Last administered on 06/06/17 21:00; Start 06/05/17 at 21:00; Stop 06/07/17 at 13:26; Status DC Aripiprazole (AbiLIFY) 30 mg QHS PO Last administered on 06/15/17 20:57; Start 06/07/17 at 21:00; Stop 06/16/17 at 07:41; Status DC Betamethasone Valerate (Valisone) to excema patch left lower ... BID TOP Last administered on 06/09/17 20:59; Start 06/03/17 at 09:00; Stop 06/09/17 at 21:01 ; Status DC Diphenhydramine HCl (Benadryl) 50 mg STAT STAT PO ; Start 06/02/17 at 14:13; Stop 06/02/17 at 14:15; Status DC Haloperidol (Haldol) 5 mg STAT STAT PO Last administered on 06/02/17 14:18; Start 06/02/17 at 14:13; Stop 06/02/17 at 14:15; Status DC Home Med (Med Rec Complete!) ASDIRECTED XX ; Start 06/01/17 at 13:00; Stop at 13:00; Status DC Hydroxyzine HCl (Atarax) 25 mg QID PO Last administered on 06/19/17 08:30; Start 06/19/17 at 09:00; Stop 06/19/17 at 09:00; Status DC Hydroxyzine HCl (Atarax) 25 mg QID PO Last administered on 06/24/17 21:03; Start 06/19/17 at 13:00; Stop 07/19/17 at 12:59 Hydroxyzine HCl (Atarax) 50 mg Q6HP PO Last administered on 06/06/17 08:32; Start 06/05/17 at 21:00; Stop 06/11/17 at 09:09; Status DC Hydroxyzine HCl (Atarax) 50 mg QHS PO Last administered on 06/04/17 20:34; Start 06/01/17 at 21:00; Stop 06/05/17 at 17:14; Status DC Hydroxyzine HCl (Atarax) 50 mg QID PO Last administered on 06/18/17 20:58; Start 06/13/17 at 13:00; Stop 06/19/17 at 08:01; Status DC Hydroxyzine HCl (Atarax) 50 mg TID PO Last administered on 06/13/17 08:24; Start 06/11/17 at 09:00; Stop 06/13/17 at 10:13; Status DC Influenza Virus Vaccine (Fluzone Quadrivalent Pf Vaccine) 0.5 ml ASDIRECTED IM ; Start 06/03/17 at 19:00; Stop 06/03/17 at 19:00; Status DC Lorazepam (Ativan) 1 mg STAT STAT PO ; Start 06/02/17 at 14:13; Stop 06/02/17 at 14:15; Status DC Magnesium Hydroxide (Milk Of Magnesia) 30 ml DAILYPRN PRN PO CONSTIPATION Last administered on 06/22/17 16:32; Start 06/01/17 at 16:00; Stop 07/01/17 at 15:59 Miscellaneous (Unresolved Clarification Entry) SEE LABEL COMMENTS UNRESOLVED XX ; Start 06/14/17 at 00:01; Stop 06/15/17 at 07:46; Status DC Non-Formulary Medication ( See Comment Field Below ) SEE COMMENTS SECTION 1T @10 XX ; Start 06/09/17 at 10:00; Stop 06/10/17 at 09:59; Status UNV Non-Formulary Medication ( See Comment Field Below ) SEE LABEL COMMENTS DAILY XX ; Start 06/07/17 at 09:00; Stop 06/07/17 at 13:29; Status DC Olanzapine (ZyPREXA ZYDIS) 10 mg Q4HP PRN PO ANXIETY/AGITATION Last administered on 06/02/17 11:07; Start 06/02/17 at 11:05; Stop 06/02/17 at 23:55 ; Status DC Olanzapine (ZyPREXA ZYDIS) 10 mg Q4HP PRN PO ANXIETY/AGITATION Last administered on 06/06/17 11:33; Start 06/03/17 at 00:00; Stop 06/11/17 at 09:09 ; Status DC Risperidone (RisperDAL) 2 mg DAILY PO ; Start 06/14/17 at 09:00; Stop 06/14/17 at 12:34; Status DC Risperidone (RisperDAL) 2 mg QHS PO Last administered on 06/15/17 20:57; Start 06/14/17 at 21:00; Stop 06/16/17 at 07:41; Status DC Risperidone (RisperDAL) 4 mg QHS PO Last administered on 06/17/17 21:06; Start 06/16/17 at 21:00; Stop 06/18/17 at 10:10; Status DC Risperidone (RisperDAL) 5 mg QHS PO Last administered on 06/24/17 21:03; Start 06/18/17 at 21:00; Stop 07/18/17 at 20:59 Trazodone HCl (Desyrel) 50 mg QHSP PRN PO INSOMNIA; Start 06/01/17 at 16:00; Stop 06/03/17 at 17:20; Status DC Trazodone HCl (Desyrel) 100 mg QHSP PRN PO INSOMNIA Last administered on 21:06; Start 06/03/17 at 17:30; Stop 06/18/17 at 10:10; Status DC Trazodone HCl (Desyrel) 150 mg QHSP PRN PO INSOMNIA Last administered on 21:03; Start 06/18/17 at 10:15; Stop 07/18/17 at 10:14 Vitamin D (Vitamin D) 1,000 units DAILY PO Last administered on 06/25/17 09:34 ; Start 06/01/17 at 09:00; Stop 07/01/17 at 08:59 Allergies Coded Allergies: Menthol (Verified Allergy, Severe, ANAPHYLAXIS, 05/26/17) Meperidine (Verified Allergy, Severe, ANAPHYLAXIS, 05/26/17) Oseltamivir (Verified Allergy, Severe, ANAPHYLAXIS, 05/26/17) Codeine (Verified Allergy, Unknown, ANAPHYLAXIS, 05/26/17) YOLANDA MANNING MD Jun 25, 2017 14:07
[2017-06-25 18:00] VITALS: BP 114/80
[2017-06-25] MEDS: traZODone 100 MG TAB PO PRN (21:00)
[2017-06-25] MEDS: risperiDONE 2 MG TAB PO SCH (21:01)
[2017-06-26 06:22] VITALS: BP 125/74
[2017-06-26] MEDS: VITAMIN D 1,000 INTERNATIONAL UNITS TABLET PO SCH (08:20)
[2017-06-26] MEDS: hydrOXYzine 25 MG TAB PO SCH (08:21)
[2017-06-26] MEDS ORDERED: VITAD1000T PO (11:35)
[2017-06-26] MEDS ORDERED: HYDR-3363 PO (11:35)
[2017-06-26] MEDS ORDERED: RISP2TAB3 PO ×2 (11:35→14:14)
[2017-06-26] MEDS ORDERED: TRAZ10TA PO ×2 (11:35→14:14)
--- NOTE | 2017-06-26 12:05 | MHDSPDOC ---
[facility] Discharge Summary Discharge Summary DATE OF ADMISSION: Jun 01, 2017 at 15:57 DATE OF DISCHARGE: 06/26/2017 at 1 PM DISCHARGE DIAGNOSES: 1. . Chronic paranoid schizophrenia 2. . REASON FOR ADMISSION: acute symptoms of psychosis, inability to function As per initial admission note "This is a 61-year-old white woman who was admitted to the hospital in a very paranoid state, who was also acutely hallucinating. She has a history of schizophrenia and she currently attends [facility]. Apparently, they have been adjusting her medications lately. It seems like they started her on Abilify and they have quickly titrated up the dose to 15 mg a day. Despite this, the patient continues to be quite psychotic. She is paranoid that people are going into her house and going through her refrigerator because they want to poison her. She has been running and hiding because the voices tell her that they are going to hurt her and they are going to hurt her friends. The patient had gone to stay actually with a friend, but according to the friend, the patient stayed up all night and was also hiding in the house and this is where the friend decided to bring the patient to the emergency room. It seems that the patient's psychiatrist had also prescribed her some Klonopin but the patient was afraid that the Klonopin would kill her, and so she never started it. The patient is acutely psychotic today. When I went into the room, the patient was hiding in the bathroom. She told me that she needed to hide because the voices were saying that they were coming to kill her. She has been compliant with taking the Abilify 15 mg at bedtime which was being prescribed by her doctor. In addition, we have been giving her some Zyprexa Zydis 10 mg at least two doses already since admission last night and yet she remains very psychotic. As a result, the patient is not able to give me much history because her focus is that she needs to hide in the bathroom. At one point, later on, she started to yell and she is also not wanting to eat much food since admission." CONSULTANTS INVOLVED: none TREATMENT AND PROGRESS ON THE UNIT : . Patient was admitted with acute psychosis , not eating much, paranoid and suspicious, not interacting at all with others in the unit, not participating in activities or the [employer]. the patient was isolated was hiding in the bathroom, because the voices were saying that they were coming to kill her. She has been compliant with taking the antipsychotic medication. She reported improvement of the auditory hallucinations to the point that the voices were not telling her any commands or messages and was difficult for her to understand what they were saying. She progressively began not having the voices as frequently until they disappeared, . Patient was reluctant at first to go back to her house, but eventually she began feeling more comfortable with the idea of going back home as she likes to live by herself. She is going to stay with her brother. Her weeks until she feels completely okay by being by herself. Patient has been compliant with the medications taking Risperdal 5 mg daily at bedtime. No side effects of the medication. No extra pyramidal symptoms. Patient feels comfortable continuing follow-up as outpatient HOSPITAL COURSE: DISCHARGE ASSESSMENT: Dave is a 61-year-old female with diagnosis of chronic schizophrenia that was admitted with acute psychotic episode consisting of paranoia, auditory hallucinations with messages that she was going to be killed. Patient has been compliant with medications. No side effects of medications. Patient auditory hallucinations disappeared. Patient is not paranoid or suspicious. Patient is stable, no acute symptoms of psychosis. Follow-Up As Outpatient and Continue Medication, Risperidone 5 Mg Daily at Bedtime. She Will Have Follow-Up on 2016 at [facility] MENTAL STATUS EXAMINATION ON DISCHARGE: Patient is a 61-year-old female , unkept ,older than stated age Speech: Is . Fluent and coherent Language skills are . Adequate Thought processes including: .circumstantial Thought content: No suicidal or homicidal ideas. No delusions elicited or hallucinations reported Description of abnormal or psychotic thoughts: . No active symptoms of psychosis Judgment: . Fair Insight: very limited, good, fair. poor. Fair Orientation: . Oriented 3 Recent and remote memory: . Intact Attention span and concentration: . Normal Language: . Fluent and coherent Fund of knowledge: . Adequate Mood: "better". Affect: Full range MEDICATIONS ON DISCHARGE: - hydroxyzine 25 mg tablet every 6 hours as needed for anxiety for . - Risperdal 5 mg orally daily at bedtime for psychosis for . - Trazodone 150 mg daily at bedtime for insomnia Vitamin D - 1000 units daily for vitamin D deficiency Ondansetron 4 mg every 4 hours as needed for nausea/vomit for . PLAN/FOLLOWUP ARRANGEMENTS: . [facility] with Dr Joyner on 06/28/17 at 11 am The amount of time spent in the coordination of care for this patient was approximately 25 minutes. Vital Signs/I&Os Vital Signs Date Time Temp Pulse Resp B/P (MAP) Pulse Ox O2 Delivery O2 Flow Rate FiO2 06/26/17 06:22 98.6 104 20 125/74 (91) 06/20/17 12:12 Room Air Medications Scheduled (Risperidone) 2 Mg Tab, 5 MG PO QHS for psychosis, #14 Cholecalciferol (Vitamin D-3) 1,000 Unit Tab, 1,000 UNIT PO DAILY, (Reported) Hydroxyzine HCl (Hydroxyzine HCl) 25 Mg Tab, 25 MG PO QID for ANXIETY, #30 Vitamin D (Vitamin D3) 1,000 Units Tab, 1,000 UNITS PO DAILY for vit D deficiency, #14 Scheduled PRN Hydroxyzine Pamoate (Hydroxyzine Pamoate) 50 Mg Cap, 50 MG PO QHS PRN for ANXIETY, (Reported) Ondansetron (Ondansetron Odt) 4 Mg Tab, 4 MG PO Q4H PRN for NAUSEA OR VOMITING, (Reported) Trazodone HCl (Trazodone HCl) 100 Mg Tab, 150 MG PO QHSP PRN for INSOMNIA, #14 Allergies Coded Allergies: Menthol (Verified Allergy, Severe, ANAPHYLAXIS, 05/26/17) Meperidine (Verified Allergy, Severe, ANAPHYLAXIS, 05/26/17) Oseltamivir (Verified Allergy, Severe, ANAPHYLAXIS, 05/26/17) Codeine (Verified Allergy, Unknown, ANAPHYLAXIS, 05/26/17) YOLANDA MANNING MD Jun 26, 2017 11:39
[2017-06-26] MEDS ORDERED: VITA-121 PO (14:14)
[2017-06-26] MEDS ORDERED: RISP1SS PO (14:14)
== END 2017-06-26 12:25 | disposition home or self-care (01) | DRG 750 ==
LOC: M ED 06:08 → M ED INP 15:57 → M PSY 16:26
PROVIDERS: ADMIT Psychiatry & Neurology Psychiatry; ATTEND Psychiatry & Neurology Psychiatry
DX: F20.0 Paranoid schizophrenia (principal); Z79.899 Other long term (current) drug therapy; Z88.5 Allergy status to narcotic agent; Z88.8 Allergy status to other drugs, medicaments and biological substances; E55.9 Vitamin D deficiency, unspecified